=== PATIENT | female | born 1950 ===

== ENCOUNTER 2021-04-05 09:17 | Outpatient (CLI) | payer OTHER | END 2021-04-05 09:29 | disposition home or self-care (01) | LOC: SONOGRAMA 09:17 | DX: R11.0 Nausea (principal); R12 Heartburn; R19.4 Change in bowel habit; R15.9 Full incontinence of feces; R14.0 Abdominal distension (gaseous) ==

== ENCOUNTER 2021-04-05 10:37 | Outpatient (CLI) | payer OTHER | END 2021-04-05 10:39 | disposition home or self-care (01) | LOC: LAB 10:37 | PROVIDERS: ATTEND Internal Medicine Gastroenterology | DX: D50.8 Other iron deficiency anemias (principal); N39.0 Urinary tract infection, site not specified; R11.11 Vomiting without nausea; E78.49 Other hyperlipidemia; R19.8 Other specified symptoms and signs involving the digestive system and abdomen ==

== ENCOUNTER → 2021-10-04 | Outpatient (CLI) | payer OTHER | END | disposition home or self-care (01) | LOC: LAB 12:53 | PROVIDERS: ATTEND Psychiatry & Neurology Psychiatry | DX: Z79.899 Other long term (current) drug therapy (principal); E55.0 Rickets, active; E03.9 Hypothyroidism, unspecified; D51.0 Vitamin B12 deficiency anemia due to intrinsic factor deficiency; F41.1 Generalized anxiety disorder; G31.84 Mild cognitive impairment of uncertain or unknown etiology ==

== ENCOUNTER → 2021-10-16 | Outpatient (CLI) | payer OTHER | END | disposition home or self-care (01) | LOC: RAD 13:30 | PROVIDERS: ATTEND Physical Medicine & Rehabilitation | DX: Z87.39 Personal history of other diseases of the musculoskeletal system and connective tissue (principal); G57.52 Tarsal tunnel syndrome, left lower limb ==

== ENCOUNTER 2021-10-29 08:01 | Outpatient (CLI) | payer OTHER | END 2021-10-29 08:10 | disposition home or self-care (01) | LOC: SONOGRAMA 08:01 | PROVIDERS: ATTEND Internal Medicine Gastroenterology | DX: R10.84 Generalized abdominal pain (principal) ==

== ENCOUNTER 2022-09-08 21:11 | Emergency (ER) | payer OTHER ==
[~2022-09-08] VITALS: Ht 165.1 cm; Wt 71.7 kg
[2022-09-08] MEDS ORDERED: FOCALIN10 MG PO (21:23)
[2022-09-08] MEDS ORDERED: LEXAPRO5 MG PO (21:23)
== END 2022-09-08 22:26 | disposition home or self-care (01) ==
LOC: ER 21:11
DX: U07.1 COVID-19 (principal)